=== PATIENT | female | born 1985 ===

== ENCOUNTER 2018-08-11 10:45 | Emergency (ER) | payer OTHER ==
[2018-08-11 11:09] VITALS: RESP 18; TEMP 98.6; O2SAT 99
[2018-08-11] MEDS ORDERED: Lidocaine 5% Patch TD STA (12:05)
[2018-08-11] MEDS ORDERED: Lidocaine 5% Patch TD ONE (12:14)
--- NOTE | 2018-08-11 12:59 | RAD ---
Date of service: 08/11/2018 PROCEDURE: Radiographs of the Lumbar Spine. HISTORY: right sacral pain s/p fall COMPARISON: Comparison made with plain film radiographs of the lumbar spine 05/22/2015. FINDINGS: BONES: Normal alignment. No listhesis. No fracture. DISC SPACES: Disc space heights maintained. Very tiny anterior marginal osteophyte formation seen at the several levels OTHER FINDINGS: In situ copper T IUD. None. IMPRESSION: No acute fractures. Very tiny anterior marginal osteophyte formation seen at several levels. In situ copper
--- NOTE | 2018-08-11 13:17 | C.PDOC ---
History Of Present Illness 33 year old female presents to the ED for evaluation of right lower back, right hip pain and bilateral posterior calf pain which began after she slipped and fell on ice on stairs around 3 days ago. Patient has been taking Motrin twice per day with minimal relief. She denies head injury, neck pain, oss of consciousness, extremity numbness/weakness. Time Seen by Provider: 08/11/18 11:27 Chief Complaint (Nursing): Back Pain History Per: Patient History/Exam Limitations: no limitations Onset/Duration Of Symptoms: Days (3) Current Symptoms Are (Timing): Still Present Quality Of Discomfort: "Pain" Previous Symptoms: Back Pain (right-sided, lower ) Associated Symptoms: denies: New Weakness, New Numbness Past Medical History Reviewed: Historical Data, Nursing Documentation, Vital Signs Vital Signs: Last Vital Signs Temp 98.6 F 08/11/18 11:06 Pulse 92 H 08/11/18 11:06 Resp 18 08/11/18 11:06 BP 123/81 08/11/18 11:06 Pulse Ox 99 08/11/18 11:06 - Medical History PMH: No Chronic Diseases Surgical History: No Surg Hx Family History: States: Unknown Family Hx - Social History Hx Alcohol Use: No Hx Substance Use: No - Immunization History Hx Tetanus Toxoid Vaccination: No Hx Influenza Vaccination: No Hx Pneumococcal Vaccination: No Review Of Systems Musculoskeletal: Positive for: Back Pain (right-sided, lower ), Other (right hip pain ) Neurological: Negative for: Weakness, Numbness, Other (head injury, LOC ) Physical Exam - Physical Exam Appears: Non-toxic, No Acute Distress (uncomfortable), Other (seated in a tilted manner, with weight on her left buttock ) Skin: Normal Color, Warm, Dry, Ecchymosis (bilateral, to distal third calf) Head: Atraumatic, Normacephalic Eye(s): bilateral: Normal Inspection Neck: No Midline Cervical Tenderness, Supple Chest: Symmetrical, No Deformity, No Tenderness Gastrointestinal/Abdominal: No Soft, No Tenderness Back: Other (right sacral tenderness) Extremity: Normal ROM (right hip tender with movement), Tenderness (right hip ), Capillary Refill (less than 2 seconds ), No Swelling Pulses: Left Dorsalis Pedis: Normal, Right Dorsalis Pedis: Normal Neurological/Psych: Oriented x3, Normal Speech, Normal Cognition, Normal Sensation ED Course And Treatment O2 Sat by Pulse Oximetry: 99 (on RA) Pulse Ox Interpretation: Normal Medical Decision Making Medical Decision Making: Progress: Hip XR, LS Spine XR ordered and reviewed. Lidoderm TD and Tylenol PO given. pt with no fx in hip or ls spine. d/c home with analgesics Disposition Counseled Patient/Family Regarding: Studies Performed, Diagnosis, Need For Followup, Rx Given - Disposition Referrals: Margaret Guevara [Staff Provider] - Disposition: HOME/ ROUTINE Disposition Time: 13:26 Condition: GOOD Additional Instructions: Take patch off in 12 hours. Warm or cold compresses to painful areas several times a day. Tylenol and Motrin for pain. FOllow up with your pmd in a few days. Rx sent to your pharmacy. Recommend arnol jimenes from [facility]. 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 - Scribe Statement The provider has reviewed the documentation as recorded by the Scribe (Vonda Marquis) All medical record entries made by the Scribe were at my direction and personally dictated by me. I have reviewed the chart and agree that the record accurately reflects my personal performance of the history, physical exam, medical decision making, and the department course for this patient. I have also personally directed, reviewed, and agree with the discharge instructions and disposition.
--- NOTE | 2018-08-11 13:24 | RAD ---
Date of service: 08/11/2018 PROCEDURE: Pelvis right hip HISTORY: s/p fall COMPARISON: Correlation made with concurrent lumbar spine radiographs TECHNIQUE: Frontal view of the pelvis and both hips and frogleg lateral view right hip performed FINDINGS: No evidence of acute displaced fracture nor dislocation. The osseous structures intact. Both femoral heads are appropriately located within their respective acetabuli. SI joints and symphysis pubis intact. In situ copper T IUD. IMPRESSION: No acute fractures. No significant degenerative osteoarthritis.
[2018-08-11 13:42] VITALS: BP 127/71; PULSE 88
== END 2018-08-11 13:42 | disposition home or self-care (01) ==
LOC: C.ER 10:45
DX: M54.5 Low back pain (principal); W00.0XXA Fall on same level due to ice and snow, initial encounter